=== PATIENT | male | born 1985 | race Two or more races ===

== ENCOUNTER 2020-03-23 07:31 | Inpatient (IN) | payer MEDICAID ==
[~2020-03-23] VITALS: Ht 167.6 cm; Wt 83.0 kg
[2020-03-23] MEDS ORDERED: KETOROLAC TROMETHAMINE 30 MG/ML VIAL IVP ONE (08:00)
[2020-03-23] MEDS ORDERED: IOVERSOL 320 MG/ML 100 ML VIAL ONE (08:03)
[2020-03-23] MEDS ORDERED: SODIUM CHLORIDE 0.9% 100 ML ONE (08:03)
[2020-03-23 08:22] LABS: BASOPHILS % (AUTO) 0.5 % (0.0-2.0); EOSINOPHILS % (AUTO) 1.8 % (1.0-6.0); HEMATOCRIT 42.5 % (41-53); HEMOGLOBIN 14.4 g/dL (13.5-17.5); LYMPHOCYTES # (AUTO) 1.8 K/uL (1.0-4.8); LYMPHOCYTES % (AUTO) 19.3 % (22.0-44.0); MEAN CORPUSCULAR HEMOGLOBIN 31.9 pg (26.0-34.0); MEAN CORPUSCULAR HGB CONC 33.8 G/dL (31.0-37.0); MEAN CORPUSCULAR VOLUME 94 fL (80-100); MONOCYTES # (AUTO) 0.7 K/uL (0.1-1.0); MONOCYTES % (AUTO) 7.8 % (2.0-9.0); NEUTROPHILS # (AUTO) 6.4 K/uL (1.8-7.7); NEUTROPHILS % (AUTO) 70.6 % (40.0-70.0); PLATELET COUNT (AUTO) 300 K/uL (150-450); RED CELL DISTRIBUTION WIDTH 13.2 % (11.5-14.5)
[2020-03-23 08:35] LABS: ANION GAP 10 mmol/L (8-16); CALCIUM, TOTAL 9.3 mg/dL (8.8-10.5); CARBON DIOXIDE 26 mmol/L (22-29); CHLORIDE 102 mmol/L (98-107); CREATININE 0.88 mg/dL (0.60-1.30); GLOMERULAR FILTR. RATE CALC > 60 mL/min (>60); GLUCOSE,RANDOM 124 mg/dL (70-110); POTASSIUM 3.2 mmol/L (3.5-5.1); SODIUM SERUM 138 mmol/L (136-145); UREA NITROGEN, BLOOD 16 mg/dL (7-18)
[2020-03-23 08:41] LABS: ALANINE AMINOTRANSFERASE 28 U/L (12-78); ALBUMIN 4.4 g/dL (3.4-5.0); ALKALINE PHOSPHATASE 54 U/L (46-116); ASPARTATE AMINOTRANSFERASE 15 U/L (15-37); BILIRUBIN,TOTAL 0.6 mg/dL (0.1-1.0); LIPASE 89 U/L (73-393); TOTAL PROTEIN, SERUM 7.9 g/dL (6.4-8.2)
[2020-03-23] MEDS ORDERED: ONDANSETRON HCL 4 MG/2 ML VIAL IVP ONE ×3 (10:30→12:00)
[2020-03-23] MEDS ORDERED: MORPHINE SULFATE 2 MG/ML SYRINGE IVP ONE (11:15)
[2020-03-23] MEDS ORDERED: SODIUM CHLORIDE 0.9% 1,000 ML IV ONE (11:15)
[2020-03-23] MEDS ORDERED: ACETAMINOPHEN 325 MG TABLET PO PRN ×2 (11:30→12:15)
[2020-03-23] MEDS ORDERED: 0.9% SODIUM CHLORIDE 10 ML SYRINGE IVP PRN ×2 (11:30→12:15)
[2020-03-23] MEDS ORDERED: PIPERACILLIN SODIUM/TAZOBACTAM 4.5 GM in DEXTROSE 5%-WATER 100 ML IV ONE (11:30)
[2020-03-23] MEDS ORDERED: ONDANSETRON HCL 4 MG/2 ML VIAL IVP PRN ×2 (11:30→12:15)
[2020-03-23] MEDS ORDERED: PHENYLEPHRINE HCL 10 MG/ML VIAL IVP ONE (12:00)
[2020-03-23] MEDS ORDERED: NEOSTIGMINE METHYLSULFATE 1 MG/ML 10 ML VIAL IVP ONE (12:00)
[2020-03-23] MEDS ORDERED: LIDOCAINE/PF 2% 5 ML VIAL INJ ONE (12:00)
[2020-03-23] MEDS ORDERED: SUCCINYLCHOLINE CHLORIDE 20 MG/ML 10 ML VIAL IVP ONE (12:00)
[2020-03-23] MEDS ORDERED: DEXAMETHASONE SOD PHOS 4 MG/ML VIAL IVP ONE (12:00)
[2020-03-23] MEDS ORDERED: KETOROLAC TROMETHAMINE 60 MG/2 ML VIAL IM ONE (12:00)
[2020-03-23] MEDS ORDERED: ROCURONIUM BROMIDE 10 MG/ML 5 ML VIAL IVP ONE (12:00)
[2020-03-23] MEDS ORDERED: GLYCOPYRROLATE 0.2 MG/ML VIAL IM ONE (12:00)
[2020-03-23] MEDS ORDERED: METOCLOPRAMIDE HCL 5 MG/ML 2 ML VIAL IVP ONE (12:00)
[2020-03-23] MEDS ORDERED: BISACODYL 10 MG RECTAL RECTAL SUPPOSITORY PR PRN (12:15)
[2020-03-23] MEDS ORDERED: IPRATROPIUM BROMIDE 0.5 MG/2.5 ML NEB SOLUTION NEB PRN (12:15)
[2020-03-23] MEDS ORDERED: PANTOPRAZOLE SODIUM 40 MG/VIAL IVP SCH (12:15)
[2020-03-23] MEDS ORDERED: MORPHINE SULFATE 2 MG/ML SYRINGE IVP PRN (12:15)
[2020-03-23] MEDS ORDERED: ALBUTEROL SULFATE 2.5 MG/0.5 ML NEB SOLUTION NEB PRN (12:15)
[2020-03-23] MEDS: SODIUM CHLORIDE 0.9% 1,000 ML IV SCH ×2 (13:16→23:39)
[2020-03-23] MEDS: PIPERACILLIN/TAZO 3.375 GM/D5W 50 ML IV SCH ×2 (17:51→23:27)
[2020-03-23 18:46] VITALS: BP 144/81
[2020-03-23] MEDS ORDERED: FentaNYL CITRATE-PF 100 MCG/2 ML VIAL IVP PRN (19:00)
[2020-03-23] MEDS ORDERED: HYDROmorphone 2 MG/ML SYRINGE IVP PRN ×2 (19:00→22:15)
[2020-03-23] MEDS ORDERED: MEPERIDINE-PF 25 MG/ML VIAL IVP PRN (19:00)
[2020-03-23 19:51] VITALS: BP 129/67
[2020-03-23] MEDS: OXYGEN THERAPY IH SCH (20:00)
[2020-03-23 20:05] VITALS: BP 121/65
[2020-03-23] MEDS ORDERED: RINGERS SOLUTION,LACTATED 1,000 ML IV ONE (20:36)
[2020-03-23] MEDS ORDERED: SODIUM CL IRRIG SOLN BAG 3,000 ML IRRIG ONE (21:02)
[2020-03-23] MEDS ORDERED: BUPIVACAINE 0.25%/EPI 1:200,000/PF 10 ML VIAL ONE (21:02)
[2020-03-23] MEDS ORDERED: MetroNIDAZOLE 500 MG/NACL 100 ML IV ONE (21:02)
[2020-03-23] MEDS ORDERED: MORPHINE SULFATE 4 MG/ML SYRINGE IVP PRN (22:15)
[2020-03-23] MEDS ORDERED: HYDROCODONE/ACETAMINOPHEN 5-325 MG TABLET PO PRN (22:15)
[2020-03-23] MEDS ORDERED: RINGERS SOLUTION,LACTATED 500 ML IV ONE (22:39)
[2020-03-24 00:10] VITALS: BP 108/68
[2020-03-24 03:50] VITALS: BP 116/58
[2020-03-24] MEDS: PIPERACILLIN/TAZO 3.375 GM/D5W 50 ML IV SCH ×2 (05:31→12:59)
[2020-03-24] MEDS: OXYGEN THERAPY IH SCH (08:00)
[2020-03-24 08:20] VITALS: BP 100/70
[2020-03-24 08:40] VITALS: BP 105/58
[2020-03-24] MEDS ORDERED: FAMOTIDINE 20 MG TABLET PO SCH (09:00)
[2020-03-24 10:36] LABS: BASOPHILS % (AUTO) 0.1 % (0.0-2.0); EOSINOPHILS % (AUTO) 0 % (1.0-6.0); HEMATOCRIT 37.8 % (41-53); HEMOGLOBIN 12.7 g/dL (13.5-17.5); LYMPHOCYTES # (AUTO) 0.9 K/uL (1.0-4.8); LYMPHOCYTES % (AUTO) 10.5 % (22.0-44.0); MEAN CORPUSCULAR HEMOGLOBIN 32.2 pg (26.0-34.0); MEAN CORPUSCULAR HGB CONC 33.5 G/dL (31.0-37.0); MEAN CORPUSCULAR VOLUME 96 fL (80-100); MONOCYTES # (AUTO) 0.3 K/uL (0.1-1.0); MONOCYTES % (AUTO) 3.7 % (2.0-9.0); NEUTROPHILS # (AUTO) 7.7 K/uL (1.8-7.7); PLATELET COUNT (AUTO) 275 K/uL (150-450); RED BLOOD CELL COUNT(AUTO) 3.92 MIL/uL (4.50-5.90)
[2020-03-24 11:11] LABS: ALANINE AMINOTRANSFERASE 24 U/L (12-78); ALBUMIN 3.4 g/dL (3.4-5.0); ALKALINE PHOSPHATASE 42 U/L (46-116); ANION GAP 9 mmol/L (8-16); ASPARTATE AMINOTRANSFERASE 13 U/L (15-37); BILIRUBIN,TOTAL 0.9 mg/dL (0.1-1.0); CALCIUM, TOTAL 8.4 mg/dL (8.8-10.5); CARBON DIOXIDE 27 mmol/L (22-29); CHLORIDE 103 mmol/L (98-107); CREATININE 0.86 mg/dL (0.60-1.30); GLOMERULAR FILTR. RATE CALC > 60 mL/min (>60); GLUCOSE,RANDOM 153 mg/dL (70-110); POTASSIUM 3.8 mmol/L (3.5-5.1); SODIUM SERUM 139 mmol/L (136-145); TOTAL PROTEIN, SERUM 6.5 g/dL (6.4-8.2); UREA NITROGEN, BLOOD 9 mg/dL (7-18)
[2020-03-24 11:16] LABS: NEUTROPHILS % (AUTO) 85.7 % (40.0-70.0)
[2020-03-24 11:26] VITALS: BP 113/56
[2020-03-24] MEDS: SODIUM CHLORIDE 0.9% 1,000 ML IV SCH (12:30)
[2020-03-24] MEDS ORDERED: AMOX1TAB16 PO (13:27)
== END 2020-03-24 14:00 | disposition home or self-care (01) | DRG 343 ==
LOC: EMS 07:31 → 5N 16:12
PROVIDERS: ADMIT Internal Medicine; ATTEND Internal Medicine
PROC: 0DTJ4ZZ Resection of Appendix, Percutaneous Endoscopic Approach (ICD-10-PCS; principal; 2020-03-23 21:30)
DX: K35.30 Acute appendicitis with localized peritonitis, without perforation or gangrene (principal); E87.6 Hypokalemia; Z03.818 Encounter for observation for suspected exposure to other biological agents ruled out
CPT/HCPCS: 74177; 88304; C9113; J0330; J0690; J1100; J1885; J2270; J2370; J2405; J2543; J2765; J3490; J7030; J7050; J7060; J7120

== ENCOUNTER 2021-07-20 18:15 | Emergency (ER) | payer SELFPAY ==
[~2021-07-20] VITALS: Ht 167.6 cm; Wt 68.2 kg
[~2021-07-20 18:15] MED LIST: AMOX1TAB16 PO
[2021-07-20 20:03] VITALS: BP 129/76
== END 2021-07-20 21:37 | disposition home or self-care (01) ==
LOC: EMS 18:17
DX: M25.512 Pain in left shoulder (principal)
CPT/HCPCS: 99283

== ENCOUNTER 2023-12-18 17:47 | Emergency (ER) | payer SELFPAY ==
[~2023-12-18] VITALS: Ht 170.2 cm; Wt 81.0 kg
[2023-12-18 19:15] VITALS: BP 132/77; PULSE 69; RESP 16; TEMP 97.6
[2023-12-18] MEDS ORDERED: CEPHALEXIN MONOHYDRATE 500 MG CAPSULE PO ONE (20:00)
[2023-12-18] MEDS ORDERED: SULFAMETHOX/TRIMETH DS 800-160 MG/TABLET PO ONE (20:00)
[2023-12-18] MEDS ORDERED: BACTDSB PO (20:04)
[2023-12-18] MEDS ORDERED: CEPH-558 PO (20:04)
== END 2023-12-18 20:29 | disposition home or self-care (01) ==
LOC: EMS 17:48
DX: L03.115 Cellulitis of right lower limb (principal); Z90.49 Acquired absence of other specified parts of digestive tract
CPT/HCPCS: 99283